=== PATIENT | male | born 1955 | race Caucasian/White ===

== ENCOUNTER 2018-05-09 11:45 | Observation (INO) ==
[2018-05-09 13:16] VITALS: BMI 27.7
[2018-05-09] MEDS ORDERED: SALINE FLUSH 10ml SYRINGE IV PRN (13:18)
--- NOTE | 2018-05-09 13:43 | Cardiology History & Physical ---
History of Present Illness Chief complaint: syncope HPI: Román is a 62 year old male who is known to Dr. Mccormack's practice with a recent history of CAD with 2 SIMONA and 2 bare metal stents of mid LAD on 05/07/18 and bladder cancer. He recovered without incident and was discharged to home in good and stable condition yesterday from [facility] with Plavix for 1 month then he is to have surgery for bladder cancer. This morning while trying to have a bowel movement he became very lightheaded, dizzy and diaphoretic, falling down twice. He was evaluated in [place] and Dr. Malone was contacted for further evaluation. He is admitted to the CCU for close monitoring of telemetry. Review of Systems - Constitutional Constitutional: Absent: chills, fatigue, fever(s) - EENMT Eyes: Absent: change in vision Balance: Absent: vertigo Mouth/Throat: Absent: sore throat - Cardiovascular Cardiovascular: Present: chest pain (last saturday following Chemo), syncope (near ), heart murmur (). Absent: palpitations, orthopnea, edema Rhythm: Absent: abnormal rhythm Vascular: Absent: pedal edema - Respiratory Respiratory: Absent: cough, dyspnea, dyspnea on exertion - Gastrointestinal Gastrointestinal: Present: constipation. Absent: diarrhea, nausea, vomiting - Genitourinary Genitourinary: Absent: dysuria - Integumentary/Breasts Integumentary: Absent: rash - Neurological Neurological: Present: as per HPI, dizziness - Endocrine Endocrine: Absent: palpitations PFSH Patient Stated Medical History Syncope Yes Heart Murmur Yes Hypertension Yes Valvular Heart Disease Yes Sleep Apnea Yes Diabetes Mellitus Type 2 Yes Cirrhosis No Gastroesophageal Reflux No Disease Gastrointestinal Bleeding No Hepatitis No Hiatal Hernia No Obstructive Bowel No Ulcer No Other GI No Other Yes: BLADDER TUMOR Chemotherapy Yes: active chemo, last 05/02 Surgical History: right carotid endarterectomy Family History: Reviewed and No significant family history - Social History Smoking status: Former smoker Substance use type: does not use Alcohol intake frequency: does not drink Housing: house Household members: spouse Current occupational status: employed Current occupation: flatbed truck driver Current residence: Apartment/Private Home Medications Home Medications Medication Instructions Recorded Confirmed Type Dm/PE/Acetaminophen/Chlorphenr 1 cap PO PRN PRN 12/31/17 01/01/18 History [Cold Multi-Symptom Day-Night] HydroCHLOROthiazide [Hydrodiuril] 1 tab PO DAILY 12/31/17 05/09/18 History Lisinopril [Zestril] 20 mg PO DAILY 12/31/17 05/09/18 History Metformin [Glucophage] 1 tab PO BID 12/31/17 05/09/18 History Simvastatin 80 mg PO HS 12/31/17 05/09/18 History Aspirin [Adult Aspirin Regimen] 81 mg PO DAILY 05/09/18 05/09/18 History Clopidogrel Bisulfate [Clopidogrel] 75 mg PO DAILY 05/09/18 05/09/18 History Metoprolol Tartrate [Lopressor] 25 mg PO WB 05/09/18 05/09/18 History Allergies Allergy/AdvReac Type Severity Reaction Status Date / Time No Known Allergies Allergy Verified 01/01/18 11:29 Exam Vital signs: Temperature 98.3 F 05/09/18 13:27 Pulse Rate 90 05/09/18 13:27 Respiratory Rate 20 05/09/18 13:27 Blood Pressure 130/78 05/09/18 13:27 Pulse Oximetry 100 05/09/18 13:27 - Constitutional no acute distress, well nourished, cooperative - Routine HEENT Exam Head: Present: normocephalic ENT: Present: mucous membranes moist Throat: other (healing incision right neck) - Routine Neck Exam Absent: JVD, carotid bruit - Routine Chest/Breast/Axilla Exam Chest wall: Absent: tenderness - Routine Respiratory Exam Present: CTA bilaterally. Absent: dyspnea, rales, wheezes - Routine Cardiovascular Exam Present: RRR, murmur (II/ murmur) - Routine Abdominal Exam Present: soft, non tender - Routine Extremities Exam Present: no edema - Routine Skin Exam Present: intact, dry, warm - Routine Neurological Exam Present: alert, oriented X3 - Routine Psychiatric Exam Present: normal affect, normal thought process Results 05/10/18 01:28 05/10/18 01:28 Intake and Output 05/08/18 05/09/18 05/09/18 22:59 06:59 14:59 Other: Weight 193 lb 1.999 oz Patient Weight 05/10/18 06:59 Weight 193 lb 1.999 oz - Imaging and Cardiology Imaging & Cardiology Narrative: Date of Exam: 05/09/18 Ordering Provider: Betsey Christianson APRN Type of Exam(s): US carotid doppler BI Reason for Exam(s): syncope Indication: syncope PROCEDURE: US carotid doppler BI: TECHNIQUE: Grayscale, color and duplex Doppler imaging was performed of the carotid systems bilaterally. Velocities in cm/sec - validated velocity measurements with angiographic measurements, velocity criteria are extrapolated from diameter data as defined by the Society of Radiologists in Ultrasound Consensus Conference Radiology 2003; 229;340-346. RIGHT: PSV ICA 117 EDV ICA 40 PSV CCA 95 EDV CCA 24 SVR 1.2 PSV ECA 212 ICA Diameter reduction 10%-30% (1.0-1.2 PSV<110)% LEFT: PSV ICA 159 EDV ICA 60 PSV CCA 106 EDV CCA 34 SVR 1.5 PSV ECA 132 ICA Diameter reduction 50-60% The right vertebral artery is patent with cephalic flow. The left vertebral artery is patent with cephalic flow. Mild common carotid intimal wall thickening bilaterally. No velocity elevation on the right. There is plaque in the left carotid bulb and proximal ICA with mild velocity elevation. IMPRESSION: 50-60% stenosis of the left proximal ICA. No hemodynamically significant carotid stenosis on the right. . 05/09/18 15:37 Hospital Course This is a general summary of the patient's hospital course. For more details refer to the complete medical record. Time spent with patient: 25 - 35 minutes Resuscitation Status: Full Code Assessment and Plan - Attestation Attestation Narrative: 05/15/18 18:00 Recommendation After examining the patient I agree with the above assessment. I am involved in the formulation of the patient's plan of care. - Assessment and Plan (1) Syncope Status: Acute Likely vagal response with straining to have BM - Constipation related to recent hospitalization and narcotics - 2d echo to evaluate valve disease ( murmur on exam) - monitor telemetry and EKG - replace mag with 2gms IV (2) Atherosclerotic heart disease of [place] coronary artery without angina pectoris Status: Acute Received 2 stents to LAD on 05/07/18 - Continue Asa, Plavix, ARB, BB and statin (3) Moderate aortic stenosis Status: Chronic 2D echo to evaluate RADHA (4) Carotid artery stenosis Status: Chronic S/P Right carotid endarterectomy - Carotid doppler (5) Mixed hyperlipidemia Status: Chronic Continue statin therapy
[2018-05-09] MEDS ORDERED: DOCUSATE SODIUM 100 MG CAPSULE PO PRN (15:03)
[2018-05-09] MEDS ORDERED: BISACODYL 10 MG SUPPOSITORY RECTALLY PRN (15:04)
--- NOTE | 2018-05-09 15:14 | Ultrasound Report ---
Indication: syncope PROCEDURE: US carotid doppler BI: TECHNIQUE: Grayscale, color and duplex Doppler imaging was performed of the carotid systems bilaterally. Velocities in cm/sec - validated velocity measurements with angiographic measurements, velocity criteria are extrapolated from diameter data as defined by the Society of Radiologists in Ultrasound Consensus Conference Radiology 2003; 229;340-346. RIGHT: PSV ICA 117 EDV ICA 40 PSV CCA 95 EDV CCA 24 SVR 1.2 PSV ECA 212 ICA Diameter reduction 10%-30% (1.0-1.2 PSV<110)% LEFT: PSV ICA 159 EDV ICA 60 PSV CCA 106 EDV CCA 34 SVR 1.5 PSV ECA 132 ICA Diameter reduction 50-60% The right vertebral artery is patent with cephalic flow. The left vertebral artery is patent with cephalic flow. Mild common carotid intimal wall thickening bilaterally. No velocity elevation on the right. There is plaque in the left carotid bulb and proximal ICA with mild velocity elevation. IMPRESSION: 50-60% stenosis of the left proximal ICA. No hemodynamically significant carotid stenosis on the right. .
[2018-05-09] MEDS: MAGNESIUM SULFATE 1gm PREMIX 1 GM/100 ML BAG IV SCH ×2 (15:39→17:04)
[2018-05-09] MEDS: ENOXAPARIN 40 MG/0.4 ML INJECTION SQ SCH (15:51)
[2018-05-09] MEDS ORDERED: [UNRECOGNIZED DRUG - OTHER] PO PRN (19:59)
[2018-05-09] MEDS ORDERED: SIMVASTATIN 80 MG PO SCH (21:00)
[2018-05-09] MEDS ORDERED: SIMVASTATIN 40 MG TABLET PO SCH (21:00)
[2018-05-09] MEDS ORDERED: METFORMIN 500 MG TABLET PO SCH (21:00)
[2018-05-10] MEDS ORDERED: METFORMIN 500 MG TABLET PO SCH (08:00)
[2018-05-10] MEDS: ENOXAPARIN 40 MG/0.4 ML INJECTION SQ SCH (08:30)
[2018-05-10 08:46] VITALS: TEMP 98.6
[2018-05-10] MEDS ORDERED: CLOPIDOGREL 75 MG TABLET PO SCH (09:00)
[2018-05-10] MEDS ORDERED: ASPIRIN *EC* 81 MG TABLET PO SCH (09:00)
[2018-05-10] MEDS ORDERED: LISINOPRIL 20 MG TABLET PO SCH (09:00)
[2018-05-10 11:16] VITALS: BP 104/63
--- NOTE | 2018-05-10 11:33 | Discharge Summary ---
<Betsey Christianson - Last Filed: 05/10/18 11:29> Discharge Information Date of admission: 05/09/18 12:56 Anticipated date of discharge: 05/10/18 Attending Physician: Jose Luis Malone MD Primary care physician: Michelle Villanueva MD - Discharge Diagnosis (1) Syncope Status: Acute (2) Atherosclerotic heart disease of [place] coronary artery without angina pectoris Status: Acute (3) Moderate aortic stenosis Status: Chronic (4) Carotid artery stenosis Status: Chronic (5) Mixed hyperlipidemia Status: Chronic syncope, CAD S/P stent - Laboratory Labs: 05/10/18 01:28 05/10/18 01:28 History of Present Illness HPI: Román is a 62 year old male who is known to Dr. Mccormack's practice with a recent history of CAD with 2 SIMONA and 2 bare metal stents of mid LAD on 05/07/18 and bladder cancer. He recovered without incident and was discharged to home in good and stable condition yesterday from [facility] with Plavix for 1 month then he is to have surgery for bladder cancer. This morning while trying to have a bowel movement he became very lightheaded, dizzy and diaphoretic, falling down twice. He was evaluated in [place] and Dr. Malone was contacted for further evaluation. He is admitted to the CCU for close monitoring of telemetry. Hospital Course This is a general summary of the patient's hospital course. For more details refer to the complete medical record. Hospital course: Syncope Current visit: Yes Status: Acute Likely vagal response with straining to have BM - Constipation related to recent hospitalization and narcotics - 2d echo to evaluate valve disease ( murmur on exam) - monitor telemetry and EKG - replace mag with 2gms IV Atherosclerotic heart disease of [place] coronary artery without angina pectoris Current visit: Yes Status: Acute Received 2 stents to LAD on 05/07/18 - Continue Asa, Plavix, ARB, BB and statin Moderate aortic stenosis Current visit: Yes Status: Chronic 2D echo to evaluate RADHA Carotid artery stenosis Current visit: Yes Status: Chronic S/P Right carotid endarterectomy - Carotid doppler Mixed hyperlipidemia Current visit: Yes Status: Chronic Continue statin therapy Time spent with patient: 25 - 35 minutes Resuscitation Status: Full Code Exam Vital signs: Temperature 98.6 F 05/10/18 08:00 Pulse Rate 86 05/10/18 11:00 Respiratory Rate 23 05/10/18 11:00 Blood Pressure 104/63 05/10/18 11:00 Pulse Oximetry 97 05/10/18 11:00 - Constitutional no acute distress, well nourished, cooperative - Routine HEENT Exam Head: Present: normocephalic ENT: Present: mucous membranes moist - Routine Neck Exam Absent: JVD, carotid bruit - Routine Chest/Breast/Axilla Exam Chest wall: Absent: tenderness - Routine Respiratory Exam Present: CTA bilaterally. Absent: rales, wheezes - Routine Cardiovascular Exam Present: murmur ( II/) - Routine Abdominal Exam Present: soft, non tender - Routine Extremities Exam Present: no edema - Routine Skin Exam Present: intact, dry, warm - Routine Neurological Exam Present: alert, oriented X3 - Routine Psychiatric Exam Present: normal affect, normal thought process Results 05/10/18 01:28 05/10/18 01:28 Cardiac Enzymes 05/09/18 05/09/18 05/10/18 Range/Units 14:14 19:32 01:28 AST (17-59) U/L Troponin I 0.177 H 0.158 H 0.139 H (0-0.12) ng/ml 05/10/18 Range/Units 01:28 AST 57 (17-59) U/L Troponin I (0-0.12) ng/ml CBC 05/10/18 Range/Units 01:28 WBC 5.8 (4.5-11.0) T/MM3 RBC 2.64 L (4.50-5.90) M/MM3 Hgb 8.1 L (13.5-17.5) GM/DL Hct 23.5 L (41-53) % Plt Count 342 (130-400) T/MM3 Neut # (Auto) 3.3 (1.8-7.7) T/MM3 Lymph # (Auto) 1.6 (1-4.8) T/MM3 [place] # (Auto) 0.7 (0-0.8) T/MM3 Eos # (Auto) 0.0 (0-0.5) T/MM3 Baso # (Auto) 0.1 (0-0.2) T/MM3 Comprehensive Metabolic Panel 05/10/18 Range/Units 01:28 Sodium 137 (136-146) MEQ/L Potassium 4.0 (3.6-5) MEQ/L Chloride 101 (98-107) MEQ/L Carbon Dioxide 25 (22-30) MEQ/L BUN 22.0 H (9-20) MG/DL Creatinine 1.4 (0.8-1.5) mg/dL Glucose 140 H (75-110) MG/DL Calcium 8.6 (8.4-10.2) MG/DL AST 57 (17-59) U/L ALT 15 (1-50) U/L Alkaline Phosphatase 69 (38-126) U/L Total Protein 6.5 (6.3-8.2) g/dL Albumin 3.9 (3.5-5.0) g/dL Intake and Output 05/09/18 05/10/18 05/10/18 22:59 06:59 14:59 Intake Total 820 / 820 500 / 500 Balance 820 / 820 500 / 500 Intake: IV 200 / 200 MAGNESIUM SULFATE 1gm PREMIX 1 200 / 200 gm In 100 ml @ 100 mls/hr IV Q1H MARIA ANTONIA Rx#:[id number] Oral 620 / 620 500 / 500 Other: # Voids 1 1 1 # Bowel Movements 1 1 - Imaging and Cardiology Imaging & Cardiology Narrative: Date of Exam: 05/09/18 Ordering Provider: Betsey Christianson APRN Type of Exam(s): US carotid doppler BI Reason for Exam(s): syncope Indication: syncope PROCEDURE: US carotid doppler BI: TECHNIQUE: Grayscale, color and duplex Doppler imaging was performed of the carotid systems bilaterally. Velocities in cm/sec - validated velocity measurements with angiographic measurements, velocity criteria are extrapolated from diameter data as defined by the Society of Radiologists in Ultrasound Consensus Conference Radiology 2003; 229;340-346. RIGHT: PSV ICA 117 EDV ICA 40 PSV CCA 95 EDV CCA 24 SVR 1.2 PSV ECA 212 ICA Diameter reduction 10%-30% (1.0-1.2 PSV<110)% LEFT: PSV ICA 159 EDV ICA 60 PSV CCA 106 EDV CCA 34 SVR 1.5 PSV ECA 132 ICA Diameter reduction 50-60% The right vertebral artery is patent with cephalic flow. The left vertebral artery is patent with cephalic flow. Mild common carotid intimal wall thickening bilaterally. No velocity elevation on the right. There is plaque in the left carotid bulb and proximal ICA with mild velocity elevation. IMPRESSION: 50-60% stenosis of the left proximal ICA. No hemodynamically significant carotid stenosis on the right. 05/10/18 11:30 Discharge Plan - Med Rec/Dispo Referrals/Follow Up: Stephane Mccormack MD [Physician] - 2 Weeks Ben Instructions: Syncope (DC) Prescriptions: Continue Simvastatin 80 mg PO HS Metformin [Glucophage] 1 tab PO BID Lisinopril [Zestril] 20 mg PO DAILY HydroCHLOROthiazide [Hydrodiuril] 1 tab PO DAILY Dm/PE/Acetaminophen/Chlorphenr [Cold Multi-Symptom Day-Night] 1 cap PO PRN PRN PRN Reason: Prn Orders Clopidogrel Bisulfate [Clopidogrel] 75 mg PO DAILY Aspirin [Adult Aspirin Regimen] 81 mg PO DAILY Metoprolol Tartrate [Lopressor] 25 mg PO WB - Disposition 01 Discharged Home, Self-Care - Dismissal Complete Discharge Instructions are:: Complete <Jose Luis Malone - Last Filed: 05/15/18 18:03> Discharge Information Date of admission: 05/09/18 12:56 Attending Physician: Jose Luis Malone MD Primary care physician: Michelle Villanueva MD - Discharge Diagnosis (1) Syncope Status: Acute (2) Atherosclerotic heart disease of [place] coronary artery without angina pectoris Status: Acute (3) Moderate aortic stenosis Status: Chronic (4) Carotid artery stenosis Status: Chronic (5) Mixed hyperlipidemia Status: Chronic - Laboratory Labs: 05/10/18 01:28 05/10/18 01:28 Hospital Course This is a general summary of the patient's hospital course. For more details refer to the complete medical record. Exam Vital signs: Temperature 98.6 F 05/10/18 08:00 Pulse Rate 108 H 05/10/18 11:30 Respiratory Rate 19 05/10/18 11:30 Blood Pressure 104/63 05/10/18 11:00 Pulse Oximetry 99 05/10/18 11:30 Results 05/10/18 01:28 05/10/18 01:28 Attestation Narriative - Attestation Attestation Narrative: 05/15/18 18:03 Recommendation After examining the patient I agree with the above assessment. I am involved in the formulation of the patient's plan of care.
[2018-05-10 11:42] VITALS: RESP 19; O2SAT 99
[2018-05-10 12:38] VITALS: PULSE 108
--- NOTE | 2018-05-14 07:19 | Echocardiogram ---
DATE OF PROCEDURE: May 09, 2018 This is a two-dimensional echo with spectral Doppler, color-flow and M-mode. It was obtained in a patient with coronary artery disease. Left atrial dimension is normal. Left ventricular end-diastolic dimension is normal. Left ventricle wall thickness is normal. LV systolic function is normal with ejection fraction of 55%. Right atrium is normal. Right ventricle is normal. Aortic root dimension is normal. Mitral valve is morphologically normal with trace of mitral regurgitation. Aortic valve shows fibrocalcific changes with restriction on opening motion. Transaortic velocities are increased with peak velocity of 3.3 m/sec with a peak gradient of 43 and mean gradient of 26. Aortic valve area is calculated at 1.2 cm2. There is no aortic insufficiency. Tricuspid valve shows mild tricuspid regurgitation with normal estimated pulmonary artery systolic pressure of 25. Pulmonary valve shows mild pulmonary insufficiency. There is no pericardial effusion. IMPRESSION 1. Normal LV systolic function with ejection fraction of 55%. 2. Trace of mitral regurgitation. 3. Mild aortic stenosis with a valve area of 1.2 cm2. 4. Mild tricuspid regurgitation with normal estimated pulmonary artery systolic pressure of 25. 5. Mild pulmonary insufficiency. MTDD
== END 2018-05-10 12:35 | disposition home or self-care (01) ==
LOC: CCU
PROVIDERS: ADMIT Internal Medicine Cardiovascular Disease; ATTEND Internal Medicine Cardiovascular Disease